=== PATIENT | female | born 1940 | race Caucasian/White ===

== ENCOUNTER 2018-10-12 05:47 | Inpatient (IN) ==
--- NOTE | 2018-08-29 12:36 | Anesthesiology Consultation ---
Date of Service August 29, 2018 Assessment & Plan (1) Encounter for pre-operative examination: Patient initially seen at [facility] 07/17/2018 for proposed surgery date of 07/27/2018. Due to history of CAD and poor functional status, preoperative cardiology clearance needed. Preoperative cardiac evaluation 07/27/2018: "Based on her negative DSE today, normal LV systolic function, and normal EKG tracingpatient is a low to intermediate surgical risk for her upcoming lumbar spine surgery. There is no need for further cardiac workup at this time." Chart Review Chart Review: Acceptable Risk for Surgery and Patient NOT seen in Pre Admission Testing History Surgery Operation Date: 09/05/18 12:25 Proposed Procedures p Removal of medicrea L-2, T12-L2 Decompression, T11-L2 Fusion - Andrae Fuller DO Height/Weight Height: 5 ft 3 in Weight: 87.09 kg Allergies Allergy/AdvReac Type Severity Reaction Status Date / Time meperidine AdvReac Unknown HEADACHE Verified 08/29/18 11:15 N/V morphine AdvReac Unknown HEADACHE Verified 08/29/18 11:15 N/V nitrofurantoin AdvReac Unknown BAD TASTE Verified 08/29/18 11:15 IN MOUTH PAPER TAPE AdvReac Unknown PAPER TAPE Uncoded 08/29/18 11:15 RIPS SKIN Medications Home Medications Medication Instructions Recorded Confirmed Last Taken aspirin [Aspir-81] 81 mg PO QAM 07/09/18 08/29/18 Unknown calcium carbonate [Calcium 600] 600 mg PO QAM 07/09/18 08/29/18 Unknown levothyroxine 75 mcg PO QAM 07/09/18 08/29/18 07/09/18 losartan 50 mg PO QAM 07/09/18 08/29/18 07/09/18 metoprolol tartrate 25 mg PO BID 07/09/18 08/29/18 07/09/18 naproxen sodium 1 tab PO UD PRN 07/09/18 08/29/18 Unknown nitroglycerin 1 dose SUBLINGUAL UD PRN 07/09/18 08/29/18 Unknown pantoprazole 40 mg PO QAM 07/09/18 08/29/18 07/09/18 pramipexole 1.5 mg PO HS 07/09/18 08/29/18 07/08/18 promethazine 25 mg PO UD PRN 07/09/18 08/29/18 Unknown Past Medical History Medical History Acid reflux CAD (coronary artery disease) STENT X 1 (to mid LAD 04/2015 History of spinal stenosis Hyperlipidemia Hypothyroidism Obesity Pulmonary embolism 2014 post op Sleep apnea CPAP Past Surgical History Surgical History History of heart artery stent X1 STENT AT [facility] 2014 (DRUG ELUTING STENTS, PER RECORDS) History of cardiac cath STENT X 1 (2014 @ [facility]) History of colonoscopy History of hysterectomy History of laparoscopic cholecystectomy History of lumbar fusion History of tonsillectomy Social History Smoking Status: Never smoker Do You Dip or Chew Tobacco: No Hx Alcohol Use: No Hx Substance Use: No substance use type: does not use Testing Electrocardiogram Date: 07/17/18 Findings: + NSR @ (70) Chest X-Ray Date: 07/17/18 Findings: + NAD Echocardiogram Date: 09/23/15 EF: 65-70% Normal LV size, thickness, and systolic function (borderline LVH). Normal segmental wall motion. No significant valvular regurgitation or stenosis. Stress Test Date: 07/27/18 Type: DSE Negative dobutamine stress echo for ischemia greater than 100% MPHR. Negative dobutamine EKG. Normal resting biventricular size and function. LVEF 60-65%. No significant valvular pathology. Cardiac Catheterization Date: 05/14/15 LM: short, normal. LAD: mid 90% stenosis after a large diagonal vessel. LCx: co-dominant. normal. RCA: normal. co-dominant. LVgram not performed. The LAD lesion is seen in 2 views and normal in others. Decision to FFR. iFR and FFR 0.98 and 0.91 respectively, which is normal. However, the stenosis angiographically appears 90% and coorelates to her nuclear stress test results. Decision to intervene. EBU 3.5 guide. predilated with 2mm balloon. Resolute 2.25x12 JOSLYN placed mid LAD just after the diagonal vessel. Post-dilated with stent balloon. Good angiographic result. Patient had radial artery spasm during case and additional IA nitro/cardene given as well as a SL nitro. Recommendations: ASA, Plavix, SHARI, BB, Statin. Laboratory Results Laboratory Tests 07/17/18 08/04/18 08/04/18 16:05 08:46 08:46 WBC 6.32 Hgb 12.7 Hct 38.4 Plt Count 222 Sodium 140 Potassium 4.5 Chloride 108 H Carbon Dioxide 30 BUN 24 H Creatinine 0.78 Glucose 103 H Hemoglobin A1c 5.9 H
[2018-10-12] MEDS ORDERED: CEFAZOLIN 2000MG 2,000 MG/15 ML SYR IV SCH (06:00)
[2018-10-12] MEDS ORDERED: ACETAMINOPHEN 500 MG TAB PO SCH (06:00)
[2018-10-12] MEDS ORDERED: CeleBREX 200 MG CAP PO SCH (06:00)
[2018-10-12] MEDS ORDERED: LR 15ML/HR IV SCH (06:00)
[2018-10-12] MEDS ORDERED: GABAPENTIN 300 MG PO SCH (06:00)
[2018-10-12] MEDS ORDERED: PROPOFOL IV EMULSION 10 MG/ML 20 ML VIAL IV ONE (06:40)
[2018-10-12] MEDS ORDERED: fentaNYL citrate 100 MCG/2 ML VIAL ONE ×2 (06:40)
[2018-10-12] MEDS ORDERED: DEXAMETHASONE SOD INJ 4 MG/ML VIAL ONE (06:40)
[2018-10-12] MEDS ORDERED: ROCURONIUM BROMIDE 10 MG/ML 5 ML VIAL ONE (06:40)
[2018-10-12] MEDS ORDERED: ONDANSETRON INJ 2 MG/ML 2 ML VIAL ONE (06:40)
[2018-10-12] MEDS ORDERED: LIDOCAINE HCL 2% 2 ML VIAL/AMP(20MG/ML) INFIL ONE (06:40)
[2018-10-12] MEDS ORDERED: PHENYLEPHRINE 100MCG/ML 5ML SYR IV PRN (06:42)
[2018-10-12] MEDS ORDERED: ONDANSETRON INJ 2 MG/ML 2 ML VIAL IV PRN ×2 (06:42→11:26)
[2018-10-12] MEDS ORDERED: ePHEDrine sulfate 50 MG/ML AMP IV PRN (06:42)
[2018-10-12] MEDS ORDERED: ATROPINE SULFATE 0.1 MG/ML 10ML SYR IV PRN (06:42)
[2018-10-12] MEDS ORDERED: HYDROmorphone INJ 1 MG/ML SYRINGE IV PRN (06:42)
[2018-10-12] MEDS ORDERED: fentaNYL citrate 100 MCG/2 ML VIAL IV PRN (06:42)
[2018-10-12] MEDS ORDERED: BACITRACIN INJ 50,000 UNIT VIAL ONE (06:48)
[2018-10-12] MEDS ORDERED: BUPIVACAINE/EPINEPHRINE 0.5% MPF 1:200,000 30 ML VIAL ONE (06:48)
[2018-10-12] MEDS ORDERED: ALBUMIN HUMAN 5% 12.5 GM/250 ML VIAL IV ONE (06:53)
[2018-10-12] MEDS ORDERED: ACETAMINOPHEN 1000 MG/100 ML IV IV ONE (06:53)
--- NOTE | 2018-10-12 07:28 | History & Physical Bridge Note ---
Date of Service October 12, 2018 History & Physical Bridge Note I have examined the patient, reviewed the History & Physical and in the interval since the performance of the History & Physical I have noted the following changes of clinical significance: no changes noted
--- NOTE | 2018-10-12 07:29 | History & Physical Report ---
Date of Service October 12, 2018 Assessment & Plan (1) Lumbar stenosis with neurogenic claudication: Removal of medically L2 T12 and L2 decompression T11-L2 fusion Present on Admission?: Yes History of Present Illness Chief Complaint: Back and leg pain Primary Care Provider: Sussy Spence MD This is a 77-year-old female who presents with chronic persistent back and leg pain. After failing extensive course of nonoperative care is here for surgical intervention. Allergies Allergy/AdvReac Type Severity Reaction Status Date / Time meperidine AdvReac Intermediate HEADACHE Verified 10/12/18 06:17 N/V morphine AdvReac Intermediate HEADACHE Verified 10/12/18 06:17 N/V nitrofurantoin AdvReac Intermediate BAD TASTE Verified 10/12/18 06:17 IN MOUTH PAPER TAPE AdvReac Intermediate PAPER TAPE Uncoded 10/12/18 06:17 RIPS SKIN Home Medications Home Medications Medication Instructions Recorded Confirmed Type aspirin [Aspir-81] 81 mg PO QAM 07/09/18 10/12/18 History calcium carbonate [Calcium 600] 600 mg PO QAM 07/09/18 10/12/18 History levothyroxine 75 mcg PO QAM 07/09/18 10/12/18 History losartan 50 mg PO QAM 07/09/18 10/12/18 History metoprolol tartrate 25 mg PO BID 07/09/18 10/12/18 History naproxen sodium 1 tab PO UD PRN 07/09/18 10/12/18 History nitroglycerin 1 dose SUBLINGUAL UD PRN 07/09/18 10/12/18 History pantoprazole 40 mg PO QAM 07/09/18 10/12/18 History pramipexole 1.5 mg PO HS 07/09/18 10/12/18 History promethazine 25 mg PO UD PRN 07/09/18 10/12/18 History colesevelam 3,750 mg PO QAM 09/04/18 10/12/18 History Past Med/Surg History Medical History Acid reflux CAD (coronary artery disease) STENT X 1 (to mid LAD 04/2015 History of spinal stenosis Hyperlipidemia Hypothyroidism Obesity Pulmonary embolism 2014 post op Sleep apnea CPAP Surgical History History of heart artery stent X1 STENT AT [facility] 2014 (DRUG ELUTING STENTS, PER RECORDS) History of cardiac cath STENT X 1 (2015 @ [facility]) History of colonoscopy History of hysterectomy History of laparoscopic cholecystectomy History of lumbar fusion History of tonsillectomy Social History Preferred Language: Australian Communication Ability: Effective Community Service Specialist Required: No Beliefs That Will Affect Care: None Current Living Situation: Spouse Other Information That Helps Us Care for You: No Feels Safe at Home: Yes Safety Concerns: Feels Safe At This Time Smoking Status: Never smoker Do You Dip or Chew Tobacco: No Second Hand Exposure: No Tobacco Cessation Education Requested by Patient: No Hx Alcohol Use: No Hx Substance Use: No Physical Exam Vital Signs (Past 24 Hours): Last Vital Signs Temp 36.7 C 10/12/18 06:22 Pulse 58 L 10/12/18 06:22 Resp 18 10/12/18 06:22 BP 126/67 10/12/18 06:22 Pulse Ox 96 10/12/18 06:22 Physical Exam: Patient is alert and oriented neurologically intact.
[2018-10-12] MEDS ORDERED: KETAMINE HCL INJ 50 MG/ML 10 ML VIAL ONE (08:11)
[2018-10-12] MEDS ORDERED: FLOSEAL HEMOSTATIC MATRIX 10ML TOP ONE (08:27)
--- NOTE | 2018-10-12 10:22 | Operative Report ---
Post Operative Report Pre & Post Diagnosis Operation Date: 10/12/18 07:45 Pre-Op Diagnosis: Lumbar spinal stenosis with neurogenic claudication Obesity Post-Op Diagnosis: Same Procedure Operation Date: 10/12/18 07:45 Actual Procedures #1 removal of L2 pedicle screws and connector. #2 expiration fusion L2-3. #3 lumbar decompression with bilateral medial facetectomies laminotomies T12-L1 L1- 2. #4 posterior spinal fusion T11-T12 T12-L1 L1-L2. #5 placement posterior segmental instrumentation using medic created rods and screws T11-T12 T12-L1 L1- 2 as well as connectors. #6 placement of local autograft in the posterior lateral gutters. #7 placement Feese collagen sponge combined with master graft in the posterior lateral gutters T11-L2. Surgeon Andrae Fuller, DO Bill Collector None Estimated Blood Loss 300 Findings See Below The patient is 5 foot 4 inches tall and 87 kg with a BMI of 33. Patient's body habitus did increase technical difficulty and added at least 25% increase in operative time. Specimens None Indications This is a 77-year-old female well-known to me that presents care she elected to go the above-mentioned procedure. Description of Procedure Patient was met with identified and informed consent obtained. Patient was then taken to the operative suite underwent intubation placed in the prone position the Justin table on top of the Abner frame. All bony prominences well-padded eyes inspected to ensure no external pressure placed upon the peer at this point the thoracolumbar spine was prepped and draped in normal sterile fashion. Sharp dissection with the assistance of Bovie cautery was performed down to and exposing the lamina and transverse processes of T11 T12-L1 and instrumentation at L2 and L3 bilaterally. And then proceed remove the connector and pedicle screws of L2. Explore the fusion mass at L2-3 noting it to be intact. And then performed a complete laminectomy of L1 and L2 including bilateral medial facetectomies and foraminotomies to address severe stenosis. Pedicle screws were then placed in T11-T12 L1 and connectors were attached to the proximal aspect of the pre-existing rods. I then connected new rods by way of the connectors locked the rods into place. The lamina and transverse processes of T11 T12-L1 and L2 were then burred to subcortical being bone. Infuse collagen sponge mass graft local autograft placed in the posterior lateral gutters. 15 round DANILO drain inserted. The incision was then closed with 1 Vicryl in the fascia 2-0 Vicryl subcutaneous and 4 Monocryl for final skin closure. Steri- Strips dressings placed. Patient will continue to PACU stable condition. Please note final cord monitoring was utilized our procedure no changes noted. I attest to the content of the Intraoperative Record and any orders documented therein. Any exceptions are noted below.
[2018-10-12] MEDS ORDERED: ePHEDrine sulfate 50 MG/ML SYR ONE (11:11)
[2018-10-12] MEDS ORDERED: NEOSTIGMINE METHYLSULFATE 1 MG/ML 10ML VIAL ONE (11:11)
[2018-10-12] MEDS ORDERED: GLYCOPYRROLATE 0.2 MG/ML VIAL ONE (11:11)
--- NOTE | 2018-10-12 11:15 | Fluoroscopy Report ---
LUMBAR SPINE, INTRAOPERATIVE FLUOROSCOPY HISTORY: T12-L2 decompression. T11-T12 fusion.. FLUOROSCOPY TIME: 20 seconds. FINDINGS: Intraoperative fluoroscopy was provided for the lumbar spine. 2 fluoroscopic spot images we re obtained. Posterior decompression fusion from T11 through L3 with pedicle screws and rods. The L2 hardware has been removed. IMPRESSION: Fluoroscopy provided for a posterior decompression and fusion within the lower thoracic a nd lumbar spine. Electronically signed by: Kee Johnson M.D. 10/12/2018 11:14 AM
--- NOTE | 2018-10-12 11:22 | Anesthesiology Progress Note ---
Date of Service October 12, 2018 Anesthesia Post Procedure Vital Signs Vital Signs: Temp Pulse Pulse Resp BP Pulse Ox 10/12/18 11:10 36.1 C L 56 L 18 138/66 96 10/12/18 11:00 54 L 22 131/71 97 10/12/18 10:50 52 L 21 130/63 99 10/12/18 10:40 57 L 23 147/62 H 98 10/12/18 10:31 36.3 C L 76 16 138/76 97 10/12/18 06:22 36.7 C 58 L 18 126/67 96 Transfer of Care Handoff Completed per policy Notes Mental Status: alert / awake / arousable Patient Amnestic to Procedure: Yes Nausea / Vomiting: adequately controlled Pain: adequately controlled Airway Patency, RR, SpO2: stable & adequate BP & HR: stable & adequate Hydration State: stable & adequate Anesthetic Complications: no major complications apparent
[2018-10-12] MEDS ORDERED: PROMETHAZINE HCL 12.5 MG in SODIUM CHLORIDE 0.9% 50 ML IV PRN (11:26)
[2018-10-12] MEDS ORDERED: HYDROmorphone INJ 0.5 MG/0.5 ML SYR IV PRN (11:26)
[2018-10-12] MEDS ORDERED: LORazepam 0.5 MG/1 ML VIAL IV PRN (11:26)
[2018-10-12] MEDS ORDERED: ONDANSETRON 4 MG TAB PO PRN (11:26)
[2018-10-12] MEDS ORDERED: NITROGLYCERIN SL 0.4 MG/TAB TAB SL PRN (11:26)
[2018-10-12] MEDS ORDERED: METOCLOPRAMIDE HCL INJ 5 MG/ML 2 ML VIAL IV PRN (11:26)
[2018-10-12] MEDS ORDERED: ACETAMINOPHEN 1,000 MG/100 ML VIAL IV PRN (11:26)
[2018-10-12] MEDS ORDERED: SOD PHOSPHATE/SOD BIPHOSPHATE ENEMA 132 ML BTL PR PRN (11:26)
[2018-10-12] MEDS ORDERED: PROMETHAZINE HCL 25 MG TAB PO PRN (11:26)
[2018-10-12] MEDS ORDERED: LORazepam 0.5 MG TAB PO PRN (11:26)
[2018-10-12] MEDS ORDERED: DO NOT ADMINISTER FLU VACCINE PRN (11:26)
[2018-10-12] MEDS ORDERED: ALUMINUM/MAGNESIUM SUSP 30 ML UDC PO PRN (11:26)
[2018-10-12] MEDS ORDERED: DO NOT ADMINISTER PNEUMOCOCCAL VACCINE PRN (11:26)
[2018-10-12] MEDS ORDERED: BISACODYL 10 MG SUPP PR PRN (11:26)
[2018-10-12] MEDS ORDERED: FAMOTIDINE 20 MG TAB PO PRN (11:26)
[2018-10-12] MEDS ORDERED: MAGNESIUM HYDROXIDE SUSP 30 ML UDC PO PRN (11:26)
[2018-10-12] MEDS: SODIUM CHLORIDE 0.9% 1000ML 1,000 ML IV SCH ×2 (11:53→18:35)
--- NOTE | 2018-10-12 12:41 | Hospitalist Progress Note ---
Date of Service October 12, 2018 Assessment & Plan (1) Post-operative state: s/p lumbar decompression and fusion 10/12 Pain control, bowel regimen, dvt prophylaxis per primary Monitor for acute blood loss - CBC am (2) CAD in [place] artery: Continue ASA when ok with surgery, continue metoprolol, losartan, (3) Gastroesophageal reflux disease: continue pantoprazole (4) Hypothyroidism: continue levothyroxine Subjective Ms. Tam is post lumbar spine decompression and fusion. She is still quite groggy but oriented. Her daughter is bedside. Pmhx: CAD with stent, hld, GERD, PE Family: mother of cancer Social: lives with but is is currently at a SNF for rehab, non smoker, non drinker Review of Systems Review of Systems: All systems reviewed & are unremarkable except as noted in HPI & below Physical Exam Physical Exam: General: no distress Eyes: normal inspection, PERLL Respiratory: chest non tender, clear to auscultation, normal breath sounds, no respiratory distress, no accessory muscle use Cardiac: regular rate and rhythm, no rub or gallop, no murmur, no edema, no jvd GI/: active bowel sounds, no abd pain or tenderness, soft, non distended Extremities: normal range of motion, normal strength, non tender Neuro/Psych:drowsy and oriented x 3, normal mood and affect, CN II - XII intact Skin: normal color, dry Results & Data Vital Signs (Past 12 Hours) Vital Signs Temp Pulse Pulse Resp BP Pulse Ox 10/12/18 12:23 55 L 18 120/73 99 10/12/18 11:55 36.3 C L 51 L 20 124/68 98 10/12/18 11:25 36.4 C L 50 L 18 129/76 99 10/12/18 11:10 36.1 C L 56 L 18 138/66 96 10/12/18 11:00 54 L 22 131/71 97 10/12/18 10:50 52 L 21 130/63 99 10/12/18 10:40 57 L 23 147/62 H 98 10/12/18 10:31 36.3 C L 76 16 138/76 97 10/12/18 06:22 36.7 C 58 L 18 126/67 96
[2018-10-12] MEDS ORDERED: ONDANSETRON INJ 2 MG/ML 2 ML VIAL IV STA (13:01)
[2018-10-12] MEDS: CEFAZOLIN 2000MG 2,000 MG/15 ML SYR IV SCH ×2 (16:58→23:59)
[2018-10-12] MEDS: METOPROLOL TARTRATE 25 MG TAB PO SCH (20:28)
[2018-10-12] MEDS: PRAMIPEXOLE DIHYDROCHLO 0.5 MG TAB PO SCH (20:28)
[2018-10-12] MEDS: DOCUSATE SODIUM/SENNA 50/8.6MG TAB PO SCH (20:29)
[2018-10-12] MEDS: OXYCODONE HCL IR 5 MG TAB (IMMEDIATE RELEASE) PO PRN ×2 (22:03→22:47)
[2018-10-13 06:07] LABS: Basophils # (auto) 0.02 K/uL (0-0.2); Basophils % (auto) 0.2 %; Eosinophils # (auto) 0.02 K/uL (0-0.5); Eosinophils % (auto) 0.2 %; Hematocrit (blood only) 26.6 % (37-47); Hemoglobin 9.1 g/dL (12.0-16.0); Immature Granulocytes # (auto) 0.02 K/uL (0.00-0.02); Immature Granulocytes % (auto) 0.2 %; Lymphocytes # (auto) 0.85 K/uL (1.2-3.4); Lymphocytes % (auto) 7.9 %; Mean Corpuscular Hgb Conc 34.2 g/dL (32-36); Mean Corpuscular Volume 86.1 fL (80-100); Mean Platelet Volume 11.2 fL (7.4-10.4); Monocytes % (auto) 8.4 %; Neutrophils # (auto) 8.92 K/uL (1.4-6.5); Neutrophils % (auto) 83.1 %; Platelet Count 164 K/uL (130-400); RDW Coefficient of Variation 14.1 % (11.5-14.5); RDW Standard Deviation 44.2 fL (36.4-46.3); Red Blood Count 3.09 M/uL (4.2-5.4); White Blood Count 10.73 K/uL (4.8-10.8)
[2018-10-13] MEDS: LEVOTHYROXINE SODIUM 75 MCG TABLET PO SCH (06:15)
[2018-10-13] MEDS: POLYETHYLENE (MIRALAX) 17 GM PACK PO SCH ×4 (06:15→23:56)
[2018-10-13 06:40] LABS: BUN Creatinine Ratio 23.1 (10-20); Calcium 8.1 mg/dl (8.5-10.1); Creatinine Clr Calc Pharmacy 59.2 ml/min; Est GFR (African American) 76.6; Est GFR (Non-African American) 66.1; Potassium 4.3 mmol/L (3.5-5.1)
[2018-10-13] MEDS: OXYCODONE HCL IR 5 MG TAB (IMMEDIATE RELEASE) PO PRN ×2 (08:15→18:31)
--- NOTE | 2018-10-13 08:35 | Orthopedic Progress Note ---
Date of Service October 13, 2018 Assessment & Plan (1) Lumbar stenosis with neurogenic claudication: Removal of medically L2 T12 and L2 decompression T11-L2 fusion We will start physical therapy today. DVT prophylaxis is in the form of teds and SCDs. Continue with aggressive bowel regimen. Maintain DANILO drain. Anticipate home within the next 24 to 48 hours. Supervising Physician Co-Signing Physician Notes Dr. Andrae Fuller Concetta Rand is postoperative day 1 decompression fusion. She is doing great. No complaints. Pain controlled. DANILO drain output last shift was 40 cc. H&H is morning are 9.1 and 26.6 respectively. No new complaints. She is up and ambulatory around the room with the walker without distress. Review of Systems Review of Systems: All systems reviewed & are unremarkable except as noted in HPI & below Physical Exam Physical Exam: She is dressed and amatory around the room with the assistance of the walker. No obvious distress. Alert and oriented x3. Lumbar dressing is clean dry and intact. Calves are soft nontender bilaterally. BRE hose intact bilaterally. Strength intact bilateral lower extremities. Results & Data Vital Signs (Past 12 Hours) Vital Signs Temp Pulse Resp BP Pulse Ox 10/13/18 07:26 37.3 C 64 17 96/64 L 97 10/13/18 03:25 36.8 C 65 16 98/65 L 93 10/12/18 23:05 36.6 C 62 18 102/64 93
[2018-10-13] MEDS: CALCIUM 600MG + VIT D 400 IU TAB PO SCH (09:06)
[2018-10-13] MEDS: LOSARTAN POTASSIUM 50 MG TAB PO SCH (09:07)
[2018-10-13] MEDS: ASPIRIN 81 MG ECTAB PO SCH (09:07)
[2018-10-13] MEDS: PANTOprazole 40 MG TAB PO SCH (09:08)
[2018-10-13] MEDS: METOPROLOL TARTRATE 25 MG TAB PO SCH ×2 (09:08→21:35)
--- NOTE | 2018-10-13 11:16 | Anesthesiology Progress Note ---
Date of Service October 13, 2018 Anesthesia Post Procedure Vital Signs Vital Signs: Temp Pulse Pulse Resp BP Pulse Ox 10/13/18 07:26 37.3 C 64 17 96/64 L 97 10/13/18 03:25 36.8 C 65 16 98/65 L 93 10/12/18 23:05 36.6 C 62 18 102/64 93 10/12/18 20:26 76 107/71 10/12/18 19:31 36.4 C L 67 17 107/66 95 10/12/18 15:38 36.4 C L 66 19 119/69 99 10/12/18 14:25 62 17 119/68 100 10/12/18 13:25 57 L 17 134/81 100 10/12/18 12:23 55 L 18 120/73 99 10/12/18 11:55 36.3 C L 51 L 20 124/68 98 10/12/18 11:25 36.4 C L 50 L 18 129/76 99 Pain Intensity Back: Pain Intensity: 10 Transfer of Care Handoff Completed per policy Notes Mental Status: alert / awake / arousable Patient Amnestic to Procedure: Yes Nausea / Vomiting: adequately controlled Pain: adequately controlled Airway Patency, RR, SpO2: stable & adequate BP & HR: stable & adequate Hydration State: stable & adequate Anesthetic Complications: no major complications apparent Notes: POD #1. Doing well. VSS
--- NOTE | 2018-10-13 15:56 | Hospitalist Consultation ---
Date of Consultation October 13, 2018 Assessment & Plan (1) Post-operative state: s/p lumbar decompression and fusion 10/12 Pain control, bowel regimen, dvt prophylaxis per primary Monitor for acute blood loss - hgb 9.1 today (2) CAD in [place] artery: Continue ASA when ok with surgery, continue metoprolol, losartan, (3) Gastroesophageal reflux disease: continue pantoprazole (4) Hypothyroidism: continue levothyroxine Hospitalists will sign off at this time. Please let us know if we can be of service in the future. History of Present Illness Attending Physician: Andrae Fuller DO History of Present Illness Ms. Tam was ambulating the halls with therapy this morning, did well, pain is well controlled. Allergies Allergy/AdvReac Type Severity Reaction Status Date / Time meperidine AdvReac Intermediate HEADACHE Verified 10/12/18 06:17 N/V morphine AdvReac Intermediate HEADACHE Verified 10/12/18 06:17 N/V nitrofurantoin AdvReac Intermediate BAD TASTE Verified 10/12/18 06:17 IN MOUTH PAPER TAPE AdvReac Intermediate PAPER TAPE Uncoded 10/12/18 06:17 RIPS SKIN Home Medications Home Medications Medication Instructions Recorded Confirmed Type aspirin [Aspir-81] 81 mg PO QAM 07/09/18 10/12/18 History calcium carbonate [Calcium 600] 600 mg PO QAM 07/09/18 10/12/18 History levothyroxine 75 mcg PO QAM 07/09/18 10/12/18 History losartan 50 mg PO QAM 07/09/18 10/12/18 History metoprolol tartrate 25 mg PO BID 07/09/18 10/12/18 History naproxen sodium 1 tab PO UD PRN 07/09/18 10/12/18 History nitroglycerin 1 dose SUBLINGUAL UD PRN 07/09/18 10/12/18 History pantoprazole 40 mg PO QAM 07/09/18 10/12/18 History pramipexole 1.5 mg PO HS 07/09/18 10/12/18 History promethazine 25 mg PO UD PRN 07/09/18 10/12/18 History colesevelam 3,750 mg PO QAM 09/04/18 10/12/18 History Patient History Medical History Acid reflux CAD (coronary artery disease) STENT X 1 (to mid LAD 04/2015 History of spinal stenosis Hyperlipidemia Hypothyroidism Obesity Pulmonary embolism 2014 post op Sleep apnea CPAP Surgical History History of heart artery stent X1 STENT AT [facility] 2014 (DRUG ELUTING STENTS, PER RECORDS) History of cardiac cath STENT X 1 (2014 @ [facility]) History of colonoscopy History of hysterectomy History of laparoscopic cholecystectomy History of lumbar fusion History of tonsillectomy Social History Preferred Language: Georgian Communication Ability: Effective Credit Relationship Manager Required: No Beliefs That Will Affect Care: None marital status: Current Living Situation: Spouse Other Information That Helps Us Care for You: No Feels Safe at Home: Yes Safety Concerns: Feels Safe At This Time Smoking Status: Never smoker Do You Dip or Chew Tobacco: No Second Hand Exposure: No Tobacco Cessation Education Requested by Patient: No Hx Alcohol Use: No Hx Substance Use: No Review of Systems Review of Systems: All systems reviewed & are unremarkable except as noted in HPI & below Physical Exam Physical Exam: General: no distress Eyes: normal inspection, PERLL Respiratory: chest non tender, clear to auscultation, normal breath sounds, no respiratory distress, no accessory muscle use Cardiac: regular rate and rhythm, no rub or gallop, no murmur, no edema, no jvd GI/: active bowel sounds, no abd pain or tenderness, soft, non distended Extremities: normal range of motion, normal strength, non tender Neuro/Psych: alert and oriented x 3, normal mood and affect Skin: normal color, dry Results & Data Vital Signs (Past 12 Hours) Vital Signs Temp Pulse Resp BP Pulse Ox 10/13/18 15:29 36.6 C 79 16 133/72 99 10/13/18 13:06 98 10/13/18 11:34 36.7 C 76 18 94/59 L 93 10/13/18 07:26 37.3 C 64 17 96/64 L 97
[2018-10-13] MEDS: PRAMIPEXOLE DIHYDROCHLO 0.5 MG TAB PO SCH (21:35)
[2018-10-13] MEDS: DOCUSATE SODIUM/SENNA 50/8.6MG TAB PO SCH (21:36)
[2018-10-13] MEDS: ACETAMINOPHEN 500 MG TAB PO PRN (21:47)
[2018-10-14] MEDS: POLYETHYLENE (MIRALAX) 17 GM PACK PO SCH ×3 (05:47→18:11)
[2018-10-14] MEDS: LEVOTHYROXINE SODIUM 75 MCG TABLET PO SCH (05:47)
[2018-10-14] MEDS: OXYCODONE HCL IR 5 MG TAB (IMMEDIATE RELEASE) PO PRN ×2 (05:58→10:31)
--- NOTE | 2018-10-14 08:49 | Orthopedic Progress Note ---
Date of Service October 14, 2018 Assessment & Plan (1) Lumbar stenosis with neurogenic claudication: She will continue physical therapy today. Maintain DANILO drain and dressing. Continue with aggressive bowel regimen. Continue with pain control. anticipate discharge home tomorrow. Supervising Physician Co-Signing Physician Notes Dr. Andrae Fuller Subjective Patient has had a bit more pain this morning. No radicular pain. DANILO drain output last shift was 40 cc. She is progressing in physical therapy. She is passing flatus but no bowel movement yet. No new complaints. Review of Systems Review of Systems: All systems reviewed & are unremarkable except as noted in HPI & below Physical Exam Physical Exam: She is lying in bed in no obvious distress. Thoracal lumbar dressing is clean dry and intact. She is alert and oriented x3. Lower extremities are neurovascular intact bilaterally. Calves are soft nontender bilaterally. Results & Data Vital Signs (Past 12 Hours) Vital Signs Temp Pulse Resp BP Pulse Ox 10/14/18 06:16 36.9 C 70 18 108/68 92 10/14/18 03:15 36.5 C 10/13/18 23:10 37.1 C 84 16 111/66 10/13/18 21:37 37.3 C 10/13/18 21:35 88 108/52 L
[2018-10-14] MEDS: METOPROLOL TARTRATE 25 MG TAB PO SCH ×2 (09:06→20:38)
[2018-10-14] MEDS: CALCIUM 600MG + VIT D 400 IU TAB PO SCH (09:06)
[2018-10-14] MEDS: PANTOprazole 40 MG TAB PO SCH (09:06)
[2018-10-14] MEDS: LOSARTAN POTASSIUM 50 MG TAB PO SCH (09:07)
[2018-10-14] MEDS: ASPIRIN 81 MG ECTAB PO SCH (09:07)
[2018-10-14] MEDS: TRAMADOL HCL 50 MG TABLET PO PRN ×2 (18:11→20:39)
[2018-10-14] MEDS: PRAMIPEXOLE DIHYDROCHLO 0.5 MG TAB PO SCH (20:38)
[2018-10-14] MEDS: DOCUSATE SODIUM/SENNA 50/8.6MG TAB PO SCH (20:39)
[2018-10-15] MEDS: POLYETHYLENE (MIRALAX) 17 GM PACK PO SCH ×4 (00:15→23:15)
[2018-10-15] MEDS: LEVOTHYROXINE SODIUM 75 MCG TABLET PO SCH (05:38)
[2018-10-15] MEDS: PANTOprazole 40 MG TAB PO SCH (07:35)
[2018-10-15] MEDS: CALCIUM 600MG + VIT D 400 IU TAB PO SCH (07:35)
[2018-10-15] MEDS: LOSARTAN POTASSIUM 50 MG TAB PO SCH (07:36)
[2018-10-15] MEDS: ASPIRIN 81 MG ECTAB PO SCH (07:36)
[2018-10-15] MEDS: METOPROLOL TARTRATE 25 MG TAB PO SCH ×2 (07:36→20:13)
[2018-10-15] MEDS: TRAMADOL HCL 50 MG TABLET PO PRN (08:46)
[2018-10-15] MEDS: OXYCODONE HCL IR 5 MG TAB (IMMEDIATE RELEASE) PO PRN (11:09)
--- NOTE | 2018-10-15 13:40 | Orthopedic Progress Note ---
Date of Service October 15, 2018 Assessment & Plan (1) Lumbar stenosis with neurogenic claudication: This time we will continue physical therapy and she has home health arranged and anticipate discharge home tomorrow. Present on Admission?: Yes Subjective Patient's back pain is controlled leg symptoms improving. Physical Exam Physical Exam: Exam she is good strength testing appears comfortable. Results & Data Vital Signs (Past 12 Hours) Vital Signs Temp Pulse Resp BP Pulse Ox 10/15/18 08:00 96 10/15/18 07:37 37.1 C 71 20 104/56 L 96
[2018-10-15] MEDS: DOCUSATE SODIUM/SENNA 50/8.6MG TAB PO SCH (20:13)
[2018-10-15] MEDS: PRAMIPEXOLE DIHYDROCHLO 0.5 MG TAB PO SCH (20:13)
[2018-10-16] MEDS: ACETAMINOPHEN 500 MG TAB PO PRN ×2 (02:54→12:02)
[2018-10-16] MEDS: TRAMADOL HCL 50 MG TABLET PO PRN ×2 (05:15→14:49)
[2018-10-16] MEDS: LEVOTHYROXINE SODIUM 75 MCG TABLET PO SCH (05:53)
[2018-10-16] MEDS: LOSARTAN POTASSIUM 50 MG TAB PO SCH (09:00)
[2018-10-16] MEDS: METOPROLOL TARTRATE 25 MG TAB PO SCH (09:00)
[2018-10-16] MEDS: CALCIUM 600MG + VIT D 400 IU TAB PO SCH (09:01)
[2018-10-16] MEDS: ASPIRIN 81 MG ECTAB PO SCH (09:01)
[2018-10-16] MEDS: PANTOprazole 40 MG TAB PO SCH (09:02)
--- NOTE | 2018-10-16 09:31 | Discharge Summary ---
Date of Service October 16, 2018 Admission HPI Per Admitting Provider This is a 77-year-old female who presents with chronic persistent back and leg pain. After failing extensive course of nonoperative care is here for surgical intervention. Principal Diagnosis Lumbar spinal stenosis with neurogenic claudication Discharge Data Allergies Allergy/AdvReac Type Severity Reaction Status Date / Time meperidine AdvReac Intermediate HEADACHE Verified 10/12/18 06:17 N/V morphine AdvReac Intermediate HEADACHE Verified 10/12/18 06:17 N/V nitrofurantoin AdvReac Intermediate BAD TASTE Verified 10/12/18 06:17 IN MOUTH PAPER TAPE AdvReac Intermediate PAPER TAPE Uncoded 10/12/18 06:17 RIPS SKIN Consultations 10/12/18 11:26 Consult Case Management - Discharge Planning Routine Consult Hospitalist Routine Procedures Performed Operation Date: 10/12/18 07:45 Actual Procedures p T12-L2 Decompression, T11-L2 Fusion, Spinal Cord Monitoring - Andrae Fuller DO s L2 Removal of Medicrea - Andrae Fuller DO Ordered Studies 10/12/18 07:45 FL fluoroscopy <1hr Routine FL lumbar spine 2-3V Routine Hospital Course (1) Lumbar stenosis with neurogenic claudication: Patient underwent lumbar decompression fusion tolerated this well was taken to orthopedic for postoperative. Postop day 1 she was up and ambulating progressed to postop day #2 and 3 DANILO drain decreasing appropriately. Leg symptoms improving. Subsequently discharged home with home health. Discharge orders and instructions found in the chart for further review. Total Time Total Time Spent Total Time Spent (In Minutes): 20 minutes Discharge Plan Discharge Items Patient Disposition: Home - Self-Care Reason For Visit: Other Biomechanical Lesions of Lumbar Region Discharge Diagnosis: lumbar stenosis Discharge Goals: Decrease discomfort Activity: Per 'Additional Instructions' section Non-emergency contact: Primary Care Provider Call non-emergency contact if: you have any medication questions Follow-up/Referrals: Sussy Spence MD [Primary Care Provider] - Diet: Regular Addtl Provider Instructions: ACTIVITY RECOMMENDATIONS: SELF CARE INSTRUCTIONS AFTER THORACIC/LUMBAR FUSIONS 1. You may walk to your tolerance. It is good exercise for your legs and back. Expect some back and intermittent leg aches and pains. 2. You may perform "counter-top" level activities (make a sandwich, haroldo with a project, etc.). 3. No bending or lifting of more than 10 pounds or back twisting of any nature (roll like a log when turning in bed). 4. You may ride in a car for 20-30 minutes at a time. No driving until after your first visit with your doctor. 5. Frequent changes of position and restricting sitting to 30 minutes at a time will help limit the amount of back spasms and stiffness you may experience. 6. You may discontinue the use of ambulatory aids (cane, crutches, etc.) once your strength and confidence allow. 7. You may quill machine tender the shower and let water strike your incision when you arrive home at least once daily. Do not take a tub bath, sit in a hot tub or go into a swimming pool until after your first recheck in the office. SPECIAL CARE INSTRUCTIONS: VERY IMPORTANT TO READ AND REVIEW A. Your surgical incision has been closed with a cosmetic suture under the skin that will dissolve in about 6 weeks. In 14 days, you can use a pair of clean scissors and cut the suture that is left outside of the skin at the ends of your incision. 1. The small skin tapes can be removed 7 days after surgery if they have not fallen off by that point. 2. You may keep the wound open to air as much as possible to promote healing after post-op day number 5 unless told otherwise by your doctor. 3. If you think the wound looks like it is becoming infected (redness or worsening drainage) and/or you are experiencing fever, chill or worsening back pain and muscle spasms, contact the office so that we may evaluate you as soon as possible. B. Complications are uncommon, but please contact us if you have any signs or symptoms of: 1. wound infection (fever higher than 102.5 degrees F, redness, separation of wound, drainage, or increasing pain from the incision) 2. blood clots in legs (pain, swelling, redness and warmth in legs) 3. urinary tract infection (fever higher than 102.5 degrees F, burning upon urination or increased frequency of urination) 4. nerve problems (inability to walk on your toes or heels, numbness, loss of bowel or bladder control) 5. any other symptoms that concern you C. Please call the office at if you have any concerns or questions about your operation or recovery. D. No smoking! Smoking drastically decreases the chance of a solid fusion. E. Do not take any anti-inflammatory medications (Indocin, Advil, Motrin, Aspirin, Naprosyn, etc.) as these may inhibit the chance of a solid fusion. Tylenol is okay to take for pain. MANAGING PAIN AFTER SPINAL SURGERY 1. Narcotic medication is intended for short-term use and will be provided for surgical pain. Surgical pain usually lasts for a period of 4-6 weeks. Narcotic medication includes Percocet, Vicodin, Darvocet, Tylenol #3 or Lortab. 2. Longer-term pain is more appropriately treated with non-narcotic medication such as Tylenol ES. 3. Muscle spasm is not appropriately treated with narcotics. Muscle relaxers such as Soma, Flexeril or Skelaxin can be used along with Tylenol ES. 4. Remember that we all live with some "aches and pains". This is not unusual or uncommon after an injury or as we get older. a. Back pain is expected and may include muscle spasms for 4 to 6 weeks after surgery. The pain should gradually improve. If the pain worsens for no apparent reason, please contact the office. b. Intermittent leg pain may also be experienced and should not be concerned about unless it worsens for no apparent reason. If so, please contact the office. 5. We will provide appropriate medication within the normal guidelines of their prescribed use. We will also be very cautious and aware of potential abuse and extended duration of patients' medication needs. a. Pain medications are for your comfort and to assist with sleep and rest so that the tissue can heal. They are not provided in order to return to normal activity and should not be used through the day. To do so or worsening pain at night can result from ongoing tissue damage and development of tolerance to the prescribed medicine. 6. Please allow 2-3 days to process refills. Prescriptions will not be mailed but must be picked up at the office. FOLLOW UP VISIT: Keep your scheduled follow-up appointment. Any questions, please call the office at . Prescriptions: New tramadol 50 mg Tablet 50 mg PO Q4H PRN (Reason: Pain, Moderate) Qty: 30 RF: 0 oxycodone 5 mg Tablet 5 mg PO Q4H PRN (Reason: Pain, Severe) Qty: 30 RF: 0 Continued losartan 50 mg Tablet 50 mg PO QAM RF: 0 aspirin [Aspir-81] 81 mg Tablet,Delayed Release (Dr/Ec) 81 mg PO QAM RF: 0 calcium carbonate [Calcium 600] 600 mg calcium (1,500 mg) Tablet 600 mg PO QAM RF: 0 pantoprazole 40 mg Tablet,Delayed Release (Dr/Ec) 40 mg PO QAM RF: 0 promethazine 25 mg Tablet 25 mg PO UD PRN (Reason: Nausea) RF: 0 nitroglycerin 0.4 mg Tablet, Sublingual 1 dose Sublingual UD PRN (Reason: CHEST PAIN ) RF: 0 pramipexole 1.5 mg Tablet 1.5 mg PO HS RF: 0 metoprolol tartrate 25 mg Tablet 25 mg PO BID RF: 0 naproxen sodium 375 mg Tablet, Er Multiphase 24 Hr 1 tab PO UD PRN (Reason: Pain) RF: 0 levothyroxine 75 mcg Capsule 75 mcg PO QAM RF: 0 colesevelam 3.75 gram Powder In Packet 3,750 mg PO QAM RF: 0 Stand-Alone Forms: [facility] Discharge Orders: Discharge Order (Routine); Ordered 10/16/18 Ordered By: Andrae Fuller Admission Data Admit Date/Time: 10/12/18 10:26 Attending Provider: Andrae Fuller Admit Provider: Andrae Fuller Primary Care Provider: Sussy Spence Other Providers: Luis Enrique oCburn Service: Surgical Services
== END 2018-10-16 15:30 | disposition home health service (06) | DRG 460 ==
LOC: ASU 05:47 → 3E 10:26